=== PATIENT | female | born 1960 | race Caucasian/White ===

== ENCOUNTER 2023-02-10 11:32 | Emergency (ER) | payer OTHER ==
[2023-02-10 11:46] VITALS: BP 134/98; PULSE 110
[2023-02-10 12:19] LABS: APPEARANCE,URINE CLOUDY (CLEAR); BILIRUBIN,URINE NEGATIVE (NEGATIVE); COLOR,URINE YELLOW (YELLOW); GLUCOSE,URINE NEGATIVE (NEGATIVE); KETONES,URINE 15 (NEGATIVE); LEUKOCYTE ESTERASE,URINE NEGATIVE (NEGATIVE); NITRITE,URINE NEGATIVE (NEGATIVE); OCCULT BLOOD,URINE NEGATIVE (NEGATIVE); PROTEIN,URINE 30 (NEGATIVE)
[2023-02-10 12:22] LABS: AMPHETAMINES,URINE NEGATIVE (NEGATIVE); BARBITURATES,URINE NEGATIVE (NEGATIVE); BENZODIAZEPINE,URINE NEGATIVE (NEGATIVE); MDMA (ECSTASY), URINE NEGATIVE (NEGATIVE); METHADONE,URINE NEGATIVE (NEGATIVE); METHAMPHETAMINES,URINE NEGATIVE (NEGATIVE); OPIATES,URINE NEGATIVE (NEGATIVE); OXYCODONE,URINE NEGATIVE (NEGATIVE); PHENCYCLIDINE,URINE NEGATIVE (NEGATIVE); TCA,URINE POSITIVE (NEGATIVE)
[2023-02-10] MEDS: Sodium Chloride 0.9% 1,000 ML IV ONE (12:22)
[2023-02-10] MEDS: Ondansetron 4 MG/2 ML SDV IVPUSH ONE (12:22)
[2023-02-10 12:23] LABS: BASOPHILS PERCENT AUTO 0.2 % (0.0-1.0); EOSINOPHILS PERCENT AUTO 0.1 % (1.0-3.0); HEMATOCRIT 45.4 % (37.0-47.0); HEMOGLOBIN 15.2 g/dL (12.0-16.0); LYMPHOCYTES PERCENT AUTO 5.9 % (20.5-50.1); MEAN CORPUSCULAR HEMOGLOBIN 31.2 pg (27.0-34.0); MEAN CORPUSCULAR HGB CONC 33.5 g/dL (33.0-35.0); MEAN CORPUSCULAR VOLUME 93.2 fL (80-100); NEUTROPHILS PERCENT AUTO 88.8 % (42.2-75.2); PLATELET COUNT,PLT 256 10^3/uL (150-450); RED BLOOD CELL COUNT 4.87 10^6/uL (4.2-5.4)
[2023-02-10 12:27] LABS: AMORPHOUS SEDIMENT,URINE MANY /HPF (NOT SEEN); BACTERIA,URINE NOT SEEN /HPF (0-FEW/HPF); EPITHELIAL CELLS,URINE RARE /HPF (NOT SEEN); MUCUS,URINE FEW /LPF (NOT SEEN); RBC,URINE NOT SEEN /HPF (0-5); WBC,URINE NOT SEEN /HPF (0-5/HPF)
[2023-02-10 12:46] LABS: LACTIC ACID 1.4 mmol/L (0.4-2.0)
[2023-02-10 12:53] LABS: A/G RATIO 1.2; ALANINE AMINOTRANSFERASE,ALT 33 U/L (14-59); ALBUMIN 4.5 g/dL (3.4-5.0); ALKALINE PHOSPHATASE 64 U/L (46-116); ANION GAP 15.8 mEq/L (7-13); ASPARTATE AMNIOTRANSFERASE,AST 27 U/L (15-37); BILIRUBIN TOTAL 0.7 mg/dL (0.2-1.0); BLOOD UREA NITROGEN,BUN 11 mg/dL (7-18); BUN/CREATININE RATIO 12.6 (No establ ref range); CALCIUM 10.2 mg/dL (8.5-10.1); CARBON DIOXIDE,CO2 29 mmol/L (21-32); CHLORIDE,CL 101 mmol/L (98-107); CREATININE 0.87 mg/dL (0.55-1.02); EST CRCL DRUG DOSING (CG) 65.11 mL/min; GLUCOSE RANDOM 146 mg/dL (70-99); MAGNESIUM 2.1 mg/dL (1.8-2.4); POTASSIUM,K 3.8 mmol/L (3.5-5.1); PROTEIN TOTAL,TP 8.1 g/dL (6.4-8.2); SODIUM,NA 142 mmol/L (136-145)
[2023-02-10 12:57] LABS: ACETAMINOPHEN 0 ug/mL (10-30 (Therapeutic)); C-REACTIVE PROTEIN < 0.2 mg/dL (0.0-0.9); ESTIMATED GFR 76 mL/min (>=60); ETHANOL BLOOD MEDICAL < 3 mg/dL (0)
[2023-02-10] MEDS: Ketorolac 30 MG/ML SDV IVPUSH ONE (13:11)
[2023-02-10] MEDS: Metoclopramide 10 MG/2 ML SDV IVPUSH ONE (13:13)
[2023-02-10] MEDS: Iopamidol 612 MG/ML 100 ML Bottle IVPUSH ONE (13:38)
[2023-02-10] MEDS: Lactated Ringers 1,000 ML IV ONE (15:45)
== END 2023-02-10 16:15 ==
LOC: DL.ED 11:32
DX: K56.609 Unspecified intestinal obstruction, unspecified as to partial versus complete obstruction (principal); K63.89 Other specified diseases of intestine; Z88.1 Allergy status to other antibiotic agents; Z88.8 Allergy status to other drugs, medicaments and biological substances; Z90.710 Acquired absence of both cervix and uterus; Z90.722 Acquired absence of ovaries, bilateral; Z88.2 Allergy status to sulfonamides
CPT/HCPCS: 36415; 43752; 74018; 74177; 80053; 80143; 80305; 80307; 81001; 82140; 83605; 83735; 85025; 86140; 96361; 96374; 96375; 99285; J1885; J2405; J2765; J7030; J7120; Q9967